=== PATIENT | male | born 1950 | race Caucasian/White ===

== ENCOUNTER 2024-06-11 11:01 | Emergency (ER) | payer OTHER, SELFPAY ==
[2024-06-11 11:13] VITALS: BP 123/70
--- NOTE | 2024-06-11 12:03 | ED.GENMED ---
History of Present Illness
General
Chief Complaint: Skin Problem
Time Seen by Provider: 06/11/24 11:54
History of Present Illness
History of Present Illness:
73-year-old male presents to the emergency department for evaluation of abscesses to the left axilla. He 'attacked them' yesterday and caused him to start draining. No fevers or chills. No history of MRSA
Past History
Past History
ED Past Medical History: Psychiatric
Social History
Personal:
Living: with family
Employment: Employed
Review of Systems
Review of Systems
Allergies reviewed?: Yes
All Other Systems: ROS reviewed and negative except as documented in HPI and ROS
Phy Exam
Physical Exam
Physical Exam:
GEN: Well appearing, NAD, WDWN
HEENT: Oral mucosa moist, no scleral icterus
Cardiac: Regular rate
Lung: No respiratory distress, no tachypnea
MSK: No gross deformity or injuries
Skin: Good color, no pallor or jaundice, no rashes. Abscesses with open wounds to the left axilla, actively draining
Neuro: AO x3, moves all extremities freely
Psych: Calm, cooperative
Course
Vital Signs
Initial and Last Documented VS:
Initial Vital Signs
Temp Pulse Resp BP Pulse Ox
98.5 F 65 18 123/70 97
06/11/24 11:13 06/11/24 11:13 06/11/24 11:13 06/11/24 11:13 06/11/24 11:13
Last Documented Vital Signs
Temp Pulse Resp BP Pulse Ox
98.5 F 65 18 123/70 97
06/11/24 11:13 06/11/24 11:13 06/11/24 11:13 06/11/24 11:13 06/11/24 11:13
MDM/Problems Addressed
MDM/Problems Addressed:
No need to perform incision and drainage as the patient perform this himself at home, will start Bactrim
*Critical Care Note
Total Time (30-74mins, 75-104mins- exclusive of procedures): Not Applicable
ED Attending Note
-
Portions of this chart may have been created with voice recognition software.� Occasional wrong word or��sound alike� substitutions may have occurred due to the inherent limitations of voice recognition software.
Discharge Plan
Departure
Patient Disposition: Home (Routine Discharge)
Date of Disposition: 06/11/24
Time of Disposition: 12:03
Patient with high blood pressure during this ER visit?: No
Discharge Problem:
Abscess of axilla, left
Instructions: Skin Abscess
Prescriptions:
New
sulfamethoxazole-trimethoprim [Bactrim DS] 800-160 mg tablet
1 tab PO BID Qty: 14 0RF
hydrocodone-acetaminophen 5-325 mg tablet
1 tab PO Q8H PRN (Reason: pain) Qty: 6 0RF
No Action
rabies vacc,human diploid (PF) [Imovax Rabies Vaccine (PF)] 1 ML recon soln
1 ml IM NOW Qty: 4 0RF
paroxetine HCl 10 MG tablet
10 mg PO DAILY
dextroamphetamine-amphetamine 10 MG tablet
10 mg PO PRN PRN (Reason: mental fatigue)
simvastatin 10 MG tablet
10 mg PO DAILY
Patient Comments:
pt unsure of all med doses, will bring in list next visit
lithium carbonate 300 MG capsule
300 mg PO DAILY
Interventions
Interventions:
*Risk Screen - Suicide Last Done: 06/11/24 11:15
*General Assessment Last Done: 06/11/24 11:15
*Neglect/Abuse Screening Last Done: 06/11/24 11:15
*ED COVID-19 Vaccine History Last Done: 06/11/24 11:15
*Nursing Disposition Last Done: 06/11/24 12:20
ED-Skin Assessment Last Done: 06/11/24 12:19
Discharge Date and Time
Discharge Date/Time: 06/11/24 12:21
Print Language: NEPALI
== END 2024-06-11 12:21 | disposition home or self-care (01) ==
LOC: EMR 11:01
PROVIDERS: EMERGENCY PHYSICIAN Emergency Medicine; FAMILY PHYSICIAN Family Medicine
DX: L02.412 Cutaneous abscess of left axilla (principal)
CPT/HCPCS: 99283

== ENCOUNTER 2024-09-25 23:15 | Observation (INO) | payer OTHER, SELFPAY ==
[2024-09-25] VITALS (13 sets, daily range): BP systolic 116–134; BP diastolic 58–84; BMI 27.0; BMI 27.1
--- NOTE | 2024-09-25 19:11 | ED.GENMED ---
ED Provider Triage
-
Patient seen by provider in Triage?: Seen in Triage
Attestation: A medical screening examination has been initiated by a qualified medical provider. Based on the assessment performed at this time, it has been determined that an emergent medical condition may exist and the patient has been informed
that further medical evaluation and possible additional diagnostic testing may be needed.
HPI: 73yoM here with insect bite to the back of L thigh. [place] a pain in the back of his thigh 3 days ago. Here with worsening redness and pain. No f/c.
GENERAL: Alert , in no apparent distress
EYE: No visual abnormalities.
NECK: Trachea midline
ENT: No visible abnormalities.
LUNGS: No acute respiratory distress
NEUROLOGICAL: Alert and oriented
SKIN: Erythema with wound noted to the posterior L thigh. +Induration. No crepitus, fluctuance, pain out of proportion.
MUSCULOSKELETAL: Moving extremities normally
PSYCH: Normal and appropriate interaction.
This is a medical evaluation conducted in person to initiate diagnostic evaluation and provide initial therapeutics. Please see further documentation by the treating clinician.
Basic labs ordered.
History of Present Illness
General
Chief Complaint: Skin Problem
Source: patient
Exam Limitations: none
Time Seen by Provider: 09/25/24 20:39
History of Present Illness
History of Present Illness:
73yoM with a history of hyperlipidemia, bipolar disorder, and prostate cancer presenting with his for evaluation of a possible insect bite to the left posterior thigh. He sat down 3 days ago and noticed a sharp pain in the back of his thigh.
He looked but did not see anything. He developed redness today which has been rapidly spreading. 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 He denies any fevers or chills. No known history of MRSA although has had
MRSA several times in the past.
Past History
Past History
ED Past Medical History: Psychiatric
Social History
Personal:
Living: with family
Employment: Employed
Phy Exam
General Physical Exam
General Presentation: well appearing and no apparent distress
General Skin: warm and dry
General Habitus: normal
General Mental: alert
ENT Exam
ENT Exam: normocephalic
Pulmonary Exam
Pulmonary Exam: no respiratory distress
Neurological Exam
Neurological Exam: alert
[place] Coma Scale
Eye Opening: Spontaneous
Verbal Response: Oriented
Motor Response: Obeys Commands
GCS Total Score: 15
Skin Exam
Skin Exam: warm/dry and other (L posterior thigh: Central area of induration with large area of surrounding erythema. Area is exquisitely tender to touch. No crepitus. )
Psychiatric Exam
Psychiatric Exam: normal mood/affect
Course
Orders/Labs/Results
Orders:
Orders
09/25/24 Dinner
Regular
09/25/24 19:17
Complete Blood Count/With Diff Urgent
Comprehensive Metabolic Panel Urgent
09/25/24 21:00
0.9% Sodium Chloride 1000 ml [Nss] 1,000 ml IV BOLUS
HYDROmorphone [Dilaudid] 0.5 mg IV NOW STA
09/25/24 21:03
Vancomycin [Vancocin] 2,000 mg 0.9% Sodium Chloride 500 ml [Nss] 500 ml IV NOW
09/25/24 21:35
Lactic Acid Urgent
Blood Culture Q30M
LINSEY Source: Blood/Venous
Specimen Description:
Blood Culture Q30M
LINSEY Source: Blood/Venous
Specimen Description:
Wound Culture [Wound/Abscess/Other Culture] Urgent
LINSEY Source: Abscess
Specimen Description:
Date Specimen was Collected: 09/25/24
Time Specimen was Collected: 21:25
Comment: L thigh
09/25/24 22:41
Admit/Transfer Patient As Directed
Co-Sign Provider:
Level of Care: Observation services
Assign to:: Medical/Surgical
Physician / Group: kimberli Lemons
Diagnosis: cellulitis
Code Status As Directed
Resuscitation Status: Full Code
PRN Pain Medication Management As Directed
May give lesser potent ordered pain med per pt: Yes
preference::
Protocol:: Medication orders for pain may be administered in a
manner that supports deferring to patient preference
when the pt is:
- Requesting an ordered lesser potent pain medication.
Least to most potent pain medications are defined
as: acetaminophen < NSAID < tramadol < opioids
(morphine, oxycodone, hydromorphone).
- Requesting a lesser dose of the same medication IF
ORDERED.
- Requesting a less intrusive route of administration
if both routes are prescribed by the provider (PO <
IV).
09/25/24 23:03
Buspirone [Buspar] 15 mg PO NOW STA
Prazosin HCl [Minipress] 1 mg PO NOW STA
09/25/24 23:47
Acetaminophen [Tylenol] 650 mg PO Q4HPRN PRN
CeFAZolin 1 GRAM [Ancef] 1 gram in 5 ml IV Q8H
diazePAM [Valium Injection] 2 mg IV Q6HPRN PRN
09/25/24 23:47
Activity As Directed
Activity Level: Ambulate
Vital Signs As Directed
Frequency: Per unit guidelines
Weight As Directed
Frequency: Once
Comment: on admission
DX Deep Vein Thrombosis Video Routine
09/26/24 06:00
Complete Blood Count/No Diff IN AM
09/26/24 18:00
Enoxaparin Sodium [Lovenox] 40 mg SC QPM
09/26/24 22:00
Atorvastatin [Lipitor] 10 mg PO HS
Buspirone [Buspar] 15 mg PO HS
Prazosin HCl [Minipress] 1 mg PO HS
Tamsulosin [Flomax] 0.4 mg PO HS
desvenlafaxine 50 mg PO HS
Abnormal Lab Results
09/25/24
19:17
WBC 11.7 H 10^3/uL
(4.8-10.8)
RBC 4.48 L 10^6/uL
(4.70-6.10)
Hgb 12.8 L g/dL
(13.0-18.0)
Hct 38.2 L %
(39.0-52.0)
Absolute Neuts (auto) 9.1 H 10^3/uL
(1.4-6.5)
Absolute Monos (auto) 0.8 H 10^3/uL
(0.1-0.6)
Neutrophils % 77.7 H %
(42.2-75.2)
Lymphocytes % 11.6 L %
(20.5-51.1)
Chloride 109 H mmol/L
(98-107)
Glucose 61 L mg/dl
(70-99)
09/25/24 19:17
09/25/24 19:17
Vital Signs
Initial and Last Documented VS:
Initial Vital Signs
Temp Pulse Resp BP Pulse Ox
98.9 F 71 18 116/82 98
09/25/24 19:09 09/25/24 19:09 09/25/24 19:09 09/25/24 19:09 09/25/24 19:09
Last Documented Vital Signs
Temp Pulse Resp BP Pulse Ox
99.1 F 88 18 121/58 97
09/25/24 23:56 09/25/24 23:56 09/25/24 23:56 09/25/24 23:56 09/25/24 23:56
Procedures
Incision/Drainage/Joint Aspiration
Left Posterior Thigh:
Anethesia: 1% Lidocaine with Epi
Preparation: cleaned with Betadine
Type of procedure: incise and drain
Nature of site: abscess
Description of abscess: greater than 3cm
Loculations broken up: Yes
How much fluid was obtained?: small amount
Fluid description: purulent
Treatment: left open for drainage
MDM/Problems Addressed
Differential Diagnosis Includes:
73yoM here with a possible insect bite to the L posterior thigh x 3 days. Now with redness today that is rapidly worsening. VSS. He is non-toxic appearing. There is induration with a large area of cellulitis on exam. Differential diagnosis includes:
insect/spider bite, abscess, cellulitis, doubt NSTI
Labs sent in triage and white count is 11.7. I&D performed at bedside with small amount of purulence which was sent for wound culture. reports that erythema has spread even since he arrived to the ED about 2 hours ago. Blood cultures and IV
vancomycin ordered. Patient admitted for further management.
*Pulse Oximetry
SaO2: 98
Oxygen Mode of Delivery: Room air
Patient hypoxic: no (98%)
*Critical Care Note
Total Time (30-74mins, 75-104mins- exclusive of procedures): Not Applicable
ED Attending Note
-
Portions of this chart may have been created with voice recognition software.� Occasional wrong word or��sound alike� substitutions may have occurred due to the inherent limitations of voice recognition software.
Discharge Plan
Departure
Patient Disposition: Admit
Date of Disposition: 09/25/24
Time of Disposition: 21:05
Presentation/result/management discussed w/ accepting MD/DO: Hospitalist
Discharge Problem:
Infected insect bite of left thigh
Interventions
Interventions:
*Risk Screen - Suicide Last Done: 09/25/24 19:09
*General Assessment Last Done: 09/25/24 19:09
*Neglect/Abuse Screening Last Done: 09/25/24 21:29
*ED- Fall Risk Assessment Last Done: 09/25/24 21:29
*ED COVID-19 Vaccine History Last Done: 09/25/24 21:29
*Nursing Disposition Last Done: 09/25/24 23:40
ED-Skin Assessment Last Done: 09/25/24 21:32
Discharge Date and Time
Discharge Date/Time: 09/25/24 23:55
[2024-09-25 19:27] LABS: Hematocrit 38.2 % (39.0-52.0); Hemoglobin 12.8 g/dL (13.0-18.0); Mean Corp Hgb Conc. 33.5 g/dL (33.0-37.0); Mean Corpuscular Volume 85.3 fL (80.0-94.0); Nucleated Red Blood Cells % 0 % (-); Platelet Count 231 10^3/uL (130-400); Red Cell Dist. Width 13.0 % (11.5-14.5)
[2024-09-25 19:53] LABS: ALT (SGPT) 24 U/L (0-50); AST (SGOT) 23 U/L (17-59); Albumin 4.0 g/dl (3.5-5.0); Alkaline Phosphatase 85 U/L (38-126); Blood Urea Nitrogen 18 mg/dl (9-20); Calcium 8.7 mg/dl (8.4-10.2); Carbon Dioxide 24 mmol/L (22-30); Chloride 109 mmol/L (98-107); Glucose 61 mg/dl (70-99); Potassium 3.9 mmol/L (3.5-5.1); Sodium 139 mmol/L (135-145); Total Protein 6.6 g/dl (6.3-8.2); eGFR > 60.00
--- NOTE | 2024-09-25 21:31 | HPS.HSE ---
Addendum entered and electronically signed by Andrey Lemons DO 09/25/24 23:09:
Patient seen and examined independently. Agree with findings and plan as set forth by ANNA Mahmood.
Patient is a 73y M with PMH significant for bipolar depression including vivid nightmares who presents to ED for evaluation of L posterior thigh pain, swelling and redness. Patient felt a sharp sting Wednesday afternoon and thought he must have sat
on something sharp. He saw nothing however. Later his noted a small area of redness over the posterior thigh. This has since increased in size and become more painful. No fevers / chills.
Ass:
Left Thigh Cellulitis / Abscess
Bipolar Depression with Vivid Nightmares
ADD
BPH
Plan:
Observe overnight for further evaluation and treatment.
Continue IV abx for now.
Aspiration performed for small amount of purulent material in the ED.
Follow-up culture data and adjust abx as needed.
Consider Surgical eval if no improvement or evidence of developing fluctuance, etc.
Continue usual psychotropic med regimen.
Patient / notes that he has frequency, vivid nightmares including 'participation' in the form of punching, acting out, etc.
Continue anxiolytic medications. Ativan PRN.
Original Note:
Family Physician
-
Family Physician: Renetta Goodson
Chief Complaint
-
left posterior thigh erythema and edema
History of Present Illness
Patient is a 73-year-old male with past medical history significant for hyperlipidemia, bipolar disorder, depression, ADHD, BPH, overactive bladder and Hx prostate cancer who presented to [facility] ED for evaluation of left posterior thigh erythema and
edema. Patient reports that he works at [employer] in [place] and when he was leaving work on Wednesday afternoon and got into his truck he stated he felt like he sat on something sharp. He immediately got up and did not see anything on the seat.
Since then he has had discomfort to the posterior left thing with touch, trying to sit or in some cases use (i.e. when pressing down clutch in truck). 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 He denies any fever, chills, cough, shortness of breath, chest pain, nausea, vomiting, constipation, diarrhea or urinary symptoms.
Medical History
Past Medical History
Past Medical History: Reports Other
Additional Past Medical History:
hyperlipidemia
bipolar disorder
depression
ADHD
BPH
overactive bladder
TANNA
Hx prostate cancer
Past Surgical History: Reports Other
Additional Past Surgical History:
right shoulder surgery rotator cuff and SLAP tear, acromioplasty Dr Hannah 10/2017
surgery right knee, ruptured 's cyst 2018
Mohs surgery for basal cell skin cancer, Dr Sands, Dr Kang 2018 for back lesion, Feb 2022 for lesion on the nose Feb 2018
prostate biopsies, prostate cancer 2021, June 2022
Social History
Tobacco: Non-smoker
Alcohol: Occasional
Drug: None
Personal:
Living: With Family
Employment: Employed
Family History
Family History: Not pertinent
Allergies / Home Medications
Allergies reflects when Allergies were last updated in [facility].
Home Medications with original date entered in [facility]
Allergy/Medication List:
Allergies
Allergy/AdvReac Type Severity Reaction Status Date / Time
No Known Allergies Allergy Verified 09/25/24 19:08
Home Medications
dextroamphetamine-amphetamine 10 mg tablet 10 mg PO PRN PRN mental fatigue 09/30/09
simvastatin 10 mg tablet 20 mg PO HS 09/30/09
alfuzosin 10 mg tablet,extended release 24 hr 10 mg PO HS 09/25/24
buspirone 15 mg tablet 15 mg HS 09/25/24
desvenlafaxine 50 mg tablet,extended release 24 hour 50 mg PO HS 09/25/24
prazosin 1 mg capsule 1 mg PO HS 09/25/24
Review of Systems
-
History Source: Patient
Constitutional: Denies Fever or Chills
EENT: Denies Sore Throat
Respiratory: Denies Cough or Trouble Breathing
Cardiac: Denies Chest Pain, Diaphoresis or Palpitations
Abdomen/GI: Denies Abdominal Pain, Nausea, Vomiting, Diarrhea or Constipated
: Denies Dysuria, Frequency, Flank Pain, Difficulty Voiding or Urgency
Musculoskeletal: Reports Other (left posterior thigh erythema, edema and pain )
Skin: Reports Other (left posterior thigh erythema, edema and pain )
Neurological: Denies Dizzy, Weakness or Numbness
Psych: Reports Calm
Physical Exam
Vital Signs
Vital Signs
Temp Pulse Resp BP Pulse Ox
98.9 F 71 18 116/82 98
09/25/24 19:09 09/25/24 19:09 09/25/24 19:09 09/25/24 19:09 09/25/24 19:12
Physical Exam
General: Well Developed, Well Nourished, No Apparent Distress, Comfortable, Conversant and Obese
HEENT: NormoCephalic, Moist mucous membranes and Atraumatic
Respiratory: Clear and Non Labored Respirations
Cardiac: S1/S2 and Regular Rhythm; No Murmur, Rub or Gallop
Breast: Deferred by me
GI: Soft, Non Tender, Non Distended and Normal Bowel Sounds; No Organomegaly
Rectal: Deferred by Provider
Genito-urinary: Deferred by me
Musculoskeletal: No Clubbing, No Cyanosis and No Edema
Skin: Warm, IV/Catheter Site and Other (left posterior thigh erythema and edema (tender to touch) )
Neuro: Awake, AO x 3 and Nonfocal/grossly intact
Psych: Calm and Intact Judgment/Insight
Laboratory Results
-
09/25/24 19:17
08/11/25 19:17
Laboratory Results
Total Bilirubin 0.6 mg/dl (0.2-1.3) 09/25/24 19:17
AST 23 U/L (17-59) 09/25/24 19:17
ALT 24 U/L (0-50) 09/25/24 19:17
Alkaline Phosphatase 85 U/L (38-126) 09/25/24 19:17
Data Reviewed
-
Lab Data: Labs Reviewed by me (WBC 11.7, Neut 77.7, )
Impression/Plan
-
IMPRESSION/PLAN:
#cellulitis likely 2/2 insect bite
WBC 11.7, Neut 77.7
- Admit to med-surg
- IV Ancef
- supportive care
#hypertension
- continue prazosin
#hyperlipidemia
- continue simvastatin
#bipolar disorder
#depression
- continue buspirone and desvenlafaxine
#ADHD
- continue Adderall PRN out patient
#BPH
- continue alfuzosin
#overactive bladder
#Hx prostate cancer
Code status: full code
DVT prophylaxis: Lovenox sq
[2024-09-25] MEDS: DILAUDID 0.5 MG IV (21:48)
[2024-09-25] MEDS: NSS 1000 IV (21:49)
[2024-09-25] MEDS: VANCOCIN 540 MG IV (22:17)
[2024-09-25] MEDS: BUSPAR 15 MG PO (23:14)
[2024-09-25] MEDS: MINIPRESS 1 MG PO (23:14)
[2024-09-26] MEDS: ANCEF 5 IV ×3 (01:01→16:34)
--- NOTE | 2024-09-26 06:59 | W.PN.HOSP.TC ---
Today's Communication/Plan
-
IV ancef to transition to Augmentin tonight
possible discharge tomorrow if cellulitis cont to improve
Assessment / Plan
Assessment / Plan
Physical Exam
General: No acute distress, appears comfortable a this time
HEENT: NormoCephalic, Moist mucous membranes and Atraumatic
Respiratory: Clear and Non Labored Respirations
Cardiac: S1/S2 and Regular Rhythm; No Murmur, Rub or Gallop
GI: Soft, Non Tender, Non Distended and Normal Bowel Sounds; No Organomegaly
Musculoskeletal: No Clubbing, No Cyanosis and No Edema
Skin: Warm, left posterior thigh erythema and edema tender to touch
Neuro: Awake, AO x 3 and Nonfocal/grossly intact
Psych: Calm and Intact Judgment/Insight
73M HLD Bipolar Depression ADHD BPH Hx Prostate Ca overactive bladder here with LLE cellulitis
#cellulitis likely 2/2 insect bite
- med-surg admit
- IV Ancef transition to Augmentin tonght 09/26
- X-ray appreciated no foreign body
- supportive care
#hypertension
- continue prazosin
#hyperlipidemia
- continue simvastatin
#bipolar disorder
#depression
- continue buspirone and desvenlafaxine
#ADHD
- continue Adderall PRN out patient
#BPH
- continue alfuzosin
#overactive bladder
#Hx prostate cancer
Code status: full code
DVT prophylaxis: Lovenox sq
I spent a total of 38 minutes with the patient or on the floor. More than 50% of this time involved counseling and coordination of care.
Anticipated Discharge: Within 24 hours
Subjective/Interval History
-
Date of Service: September 26, 2024
no acute distress, sitting up comfortably in bed, reports significant improvement in pain since start of IV abx. Denies new acute issues.
Objective Data
-
Labs:
Laboratory Results
09/25/24 09/26/24
19:17 06:42
WBC 11.7 H Pending
Hgb 12.8 L Pending
Hct 38.2 L Pending
Plt Count 231 Pending
Sodium 139
Potassium 3.9
Chloride 109 H
Carbon Dioxide 24
BUN 18
Creatinine 0.8
Glucose 61 L
Calcium 8.7
Total Bilirubin 0.6
AST 23
ALT 24
Alkaline Phosphatase 85
Vital Signs:
Vital Signs
Temp Pulse Resp BP Pulse Ox
99.1 F 88 18 121/58 97
09/25/24 23:56 09/25/24 23:56 09/25/24 23:56 09/25/24 23:56 09/26/24 02:05
[2024-09-26 07:13] VITALS: BP 106/59
[2024-09-26 07:59] LABS: Hematocrit 35.4 % (39.0-52.0); Hemoglobin 11.9 g/dL (13.0-18.0); Mean Corp Hgb Conc. 33.6 g/dL (33.0-37.0); Mean Corpuscular Volume 85.9 fL (80.0-94.0); Platelet Count 229 10^3/uL (130-400); Red Cell Dist. Width 13.1 % (11.5-14.5)
[2024-09-26 09:36] LABS: Hepatitis C Antibody Negative (Negative)
[2024-09-26 15:29] VITALS: BP 117/69
--- NOTE | 2024-09-26 16:20 | CM ---
Met with patient to obtain information for assessment. Patient's was at bedside. Patient stated that he lives in a two story home with two steps to enter with his . He described himself as independent with all of his ADLs, personal care,
dressing and bathing. 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 He can drive and can get himself to all of his own appointments. Patient has a CPAP. He has never been to a SNF or had VN in the past.
Patient has a prescription plan and uses, [facility] in [place] for all of his medications.
Patient's PCP is, Renetta Goodson.
OBS letter signed and in chart.
Plan: Case management will continue to follow and assist with discharge planning. Home when cleared.
[2024-09-26] MEDS: LOVENOX 40 MG SC (16:35)
[2024-09-26] MEDS: AUGMENTIN 875 MG/125 MG 1 TABLET PO (19:24)
[2024-09-26] MEDS: FLOMAX 0.4 MG PO (20:56)
[2024-09-26] MEDS: BUSPAR 15 MG PO (20:56)
[2024-09-26] MEDS: NON-FORMULARY ITEM 1 MG PO (20:56)
[2024-09-26] MEDS: LIPITOR 10 MG PO (20:56)
[2024-09-26] MEDS: MINIPRESS 1 MG PO (20:56)
[2024-09-26 23:22] VITALS: BP 143/65
--- NOTE | 2024-09-27 07:15 | W.PN.HOSP.TC ---
Today's Communication/Plan
-
discharge
Assessment / Plan
Assessment / Plan
Physical Exam
General: No acute distress, appears comfortable a this time
HEENT: NormoCephalic, Moist mucous membranes and Atraumatic
Respiratory: Clear and Non Labored Respirations
Cardiac: S1/S2 and Regular Rhythm; No Murmur, Rub or Gallop
GI: Soft, Non Tender, Non Distended and Normal Bowel Sounds; No Organomegaly
Musculoskeletal: No Clubbing, No Cyanosis and No Edema
Skin: Warm, left posterior thigh erythema, swelling, tenderness significantly improved
Neuro: Awake, AO x 3 and Nonfocal/grossly intact
Psych: Calm and Intact Judgment/Insight
73M HLD Bipolar Depression ADHD BPH Hx Prostate Ca overactive bladder here with LLE cellulitis
#cellulitis likely 2/2 insect bite
- med-surg admit
- IV Ancef transitioned to Augmentin Evening 09/26
- X-ray appreciated no foreign body
- cellulitis improving however wound culture returned positive for MRSA despite neg MRSA screen
-09/27 Augmentin switched to Doxycycline 100 mg bid planned for 5 more days of antibiotic treatment.
#hypertension
- continue prazosin
- well controlled at this time
#hyperlipidemia
- continue simvastatin
#bipolar disorder
#depression
- continue buspirone and desvenlafaxine
#ADHD
- continue Adderall PRN out patient
#BPH
- continue alfuzosin
#overactive bladder
#Hx prostate cancer
Code status: full code
DVT prophylaxis: Lovenox sq
Total Time Preparing Discharge __40__ minutes including examination of the patient, summary of the hospital stay, instructions for continuing care to all relevant caregivers; and preparation of discharge records, prescriptions, and referral forms
if necessary.
Anticipated Discharge: Today
Subjective/Interval History
-
Date of Service: September 27, 2024
Overall reports feeling well, LLE thigh swelling erythema significantly improved. Denies new acute issues. Eager to go home
Objective Data
-
Vital Signs:
Vital Signs
Temp Pulse Resp BP Pulse Ox
98.3 F 61 17 143/65 96
09/26/24 23:22 09/26/24 23:22 09/26/24 23:22 09/26/24 23:22 09/26/24 23:22
I&O
09/26/24 09/27/24 09/28/24
06:59 06:59 06:59
Intake Total 0 / 0 1200 / 1200
Balance 0 / 0 1200 / 1200
[2024-09-27 07:26] VITALS: BP 110/70
[2024-09-27] MEDS: AUGMENTIN 875 MG/125 MG 1 TABLET PO (08:20)
[2024-09-27] MEDS: VIBRAMYCIN 100 MG PO (13:38)
--- NOTE | 2024-09-27 13:41 | W.DCSUMMARY ---
Discharge Summary
Discharge Data
Date of Admission: 09/25/24
Date of Discharge: 09/27/24
-
Pending Results: Yes (official culture results)
Discharge Plan
-
Patient Disposition: Home (Routine Discharge)
Discharge Diagnosis/Procedures: Left Lower Extremity, posterior thigh, cellulitis
MRSA wound infection
Condition: Good
Diet: Regular
Activity: As tolerated
Driving Restrictions: As prior to admission
Bathing Restrictions: None
Activity Restrictions/Additional Instructions:
Follow up with primary care provider in 1 week of discharge.
Doxycycline 100 mg twice a day for 5 days prescribed for Left lower extremity posterior thigh cellulitis MRSA wound infection.
Doxycycline Precautions
Take with at least 6 oz H2O
Take with food but no calcium containing products like milk or cheese
Ideally you would not take any multivitamins, calcium, magnesium or zinc containing products.
If you must take one of these products make sure that the pills are by at least 3 hours.
Sit up for at least 30 minutes after each dose to prevent heartburn.
Your skin will be more sensitive to the sun while you are on doxycycline - it will be very easy for you to get a sunburn.
Please take medications as prescribed/recommended and follow up with primary care provider and/or other healthcare provider involved in your care for refills and/or further adjustment to your medication regimen as necessary.
Referrals:
Renetta Goodson MD [Family Provider, [facility]] - in one week
Prescriptions:
New
doxycycline hyclate 100 mg Capsule
100 mg PO Q12 5 Days Qty: 10 0RF
Continued
dextroamphetamine-amphetamine 10 MG tablet
10 mg PO PRN PRN (Reason: mental fatigue)
simvastatin 10 MG tablet
20 mg PO HS
Patient Comments:
pt unsure of all med doses, will bring in list next visit
prazosin 1 mg Capsule
1 mg PO HS
buspirone 15 mg Tablet
15 mg HS
alfuzosin 10 mg Tablet Extended Release 24 Hr
10 mg PO HS
desvenlafaxine 50 mg Tablet Extended Release 24hr
50 mg PO HS
Discharge Orders:
Discharge Patient (As Directed); Ordered 09/27/24
Ordered By: Andrew Baltazar
Discharge Date and Time
Print Language: SWEDISH
[2024-09-27 15:20] VITALS: BP 122/66
== END 2024-09-27 17:46 | disposition home or self-care (01) ==
LOC: 4 EAST ACU 23:15
PROVIDERS: Nurse Practitioner Family; Physician Assistant; ADMITTING PHYSICIAN Hospitalist; ATTENDING PHYSICIAN Internal Medicine; EMERGENCY PHYSICIAN Emergency Medicine; FAMILY PHYSICIAN Family Medicine
DX: L03.116 Cellulitis of left lower limb (principal); B95.62 Methicillin resistant Staphylococcus aureus infection as the cause of diseases classified elsewhere; S70.362A Insect bite (nonvenomous), left thigh, initial encounter; W57.XXXA Bitten or stung by nonvenomous insect and other nonvenomous arthropods, initial encounter; F31.9 Bipolar disorder, unspecified; E78.5 Hyperlipidemia, unspecified; F90.9 Attention-deficit hyperactivity disorder, unspecified type; N32.81 Overactive bladder; N40.1 Benign prostatic hyperplasia with lower urinary tract symptoms; I10 Essential (primary) hypertension; G47.33 Obstructive sleep apnea (adult) (pediatric)
CPT/HCPCS: 10060; 73552; 80053; 83605; 85025; 85027; 86803; 87040; 87070; 87147; 87186; 87205; 96365; 96366; 96375; 99285; G0378

== ENCOUNTER → 2024-10-25 09:41 | Outpatient (REF) | payer OTHER, SELFPAY | LOC: HWRAD 09:41 | PROVIDERS: ATTENDING PHYSICIAN Urology; FAMILY PHYSICIAN Family Medicine | DX: N20.0 Calculus of kidney (principal) | CPT/HCPCS: 74018 ==

== ENCOUNTER 2024-11-22 22:53 | Inpatient (IN) | payer OTHER, SELFPAY ==
[2024-11-22 14:09] VITALS: BP 171/84
[2024-11-22 14:30] LABS: Hematocrit 43.2 % (39.0-52.0); Hemoglobin 14.4 g/dL (13.0-18.0); Mean Corp Hgb Conc. 33.3 g/dL (33.0-37.0); Mean Corpuscular Volume 83.6 fL (80.0-94.0); Nucleated Red Blood Cells % 0 % (-); Platelet Count 258 10^3/uL (130-400); Red Cell Dist. Width 12.7 % (11.5-14.5)
[2024-11-22 14:42] LABS: ALT (SGPT) 21 U/L (0-50); AST (SGOT) 21 U/L (17-59); Albumin 4.5 g/dl (3.5-5.0); Alkaline Phosphatase 105 U/L (38-126); Blood Urea Nitrogen 18 mg/dl (9-20); Calcium 9.4 mg/dl (8.4-10.2); Carbon Dioxide 24 mmol/L (22-30); Chloride 109 mmol/L (98-107); Glucose 118 mg/dl (70-99); Lipase 62 U/L (23-300); Potassium 5.1 mmol/L (3.5-5.1); Sodium 139 mmol/L (135-145); Total Protein 7.2 g/dl (6.3-8.2); eGFR > 60.00
--- NOTE | 2024-11-22 18:00 | ED.GENMED ---
History of Present Illness
<Tata Barton PA-C - Last Filed: 11/23/24 02:23>
General
Chief Complaint: Abdominal Symptoms
Source: patient
Exam Limitations: none
Time Seen by Provider: 11/22/24 17:37
Nursing documentation reviewed up to this point in time: agreed with
History of Present Illness
History of Present Illness:
Patient is a 73-year-old male with history prostate CA who presents to the emergency department today with 1 day of lower abdominal pain and vomiting. Patient states that today on his drive to work he had somewhat acute onset nausea and vomiting as
well as pain across his entire lower abdomen. Since then, he has had intractable vomiting. Pain has dissipated somewhat since earlier this morning. He denies any fever or chills. No diarrhea however he does state that he is having less frequent
bowel movements over the past few days. Last night he felt slightly 'off' with low appetite and did not eat dinner. No dysuria or hematuria.
Patient states he has never experienced similar symptoms.
He does have a past history of prostate cancer and follows with a urologist at [facility].
Past History
<Tata Barton PA-C - Last Filed: 11/23/24 02:23>
Past History
ED Past Medical History: Psychiatric
Social History
Personal:
Living: with family
Employment: Employed
Review of Systems
<Tata Barton PA-C - Last Filed: 11/23/24 02:23>
Review of Systems
Allergies reviewed?: Yes
All Other Systems: ROS reviewed and negative except as documented in HPI and ROS
Phy Exam
<Tata Barton PA-C - Last Filed: 11/23/24 02:23>
Physical Exam
Physical Exam:
Vitals: Hypertensive, otherwise vital signs stable. Afebrile
General: Patient is retching on initial evaluation. Nontoxic
Skin: Warm and dry, no rashes or lesions
Head: Normocephalic, atraumatic
Eyes: Sclera nonicteric. EOMs intact.
Throat: Protecting airway
Neck: Normal ROM, no cervical spine tenderness, no meningismus
Cardiac: Regular rate and rhythm, no murmurs.
Pulm: Normal respiratory effort, no wheezes, rales, rhonchi heard on exam
Abdomen: Abdomen soft. Mild tenderness across entire lower abdomen. No rebound tenderness or guarding. No CVA tenderness.
Extremities: No evidence of cyanosis or edema. 2+ palpable DP pulses bilaterally
Neuro: AAOx3. Grossly intact.
Psychiatric: Normal affect.
Course
<Tata Barton PA-C - Last Filed: 11/23/24 02:23>
Orders/Labs/Results
Orders:
Orders
11/22/24 14:17
Complete Blood Count/With Diff Urgent
Comprehensive Metabolic Panel Urgent
Lipase Urgent
11/22/24 17:58
CT Abd/pelvis W Iv Cont Urgent
Comment:
Reason For Exam: Lower abdominal pain, vomiting
0.9% Sodium Chloride 1000 ml [Nss] 1,000 ml IV BOLUS
Ketorolac [Toradol] 15 mg IV NOW STA
Ondansetron Injectable [Zofran] 4 mg IV NOW STA
11/22/24 18:25
COVID-19 Antigen Urgent
Source: Nasal Swab
Lactic Acid Q4H
Comment: CANCEL 2nd LACTIC ACID IF 1st LACTIC ACID IS LESS THAN 2
Influenza A+B Rapid Molecular Urgent
LINSEY Source: Nasal Swab
Specimen Description:
11/22/24 21:18
Urinalysis Reflex To Culture Urgent
Date Specimen was Collected: 11/22/24
Time Specimen was Collected: 21:17
Urine Microscopic Reflex Cult Urgent
Urine Culture Urgent
LINSEY Source: U
Specimen Description:
Date Specimen was Collected: 11/22/24
Time Specimen was Collected: 21:17
11/22/24 21:43
HYDROmorphone [Dilaudid] 0.5 mg IV NOW STA
Tamsulosin [Flomax] 0.4 mg PO NOW STA
11/22/24 21:56
Ondansetron Injectable [Zofran] 4 mg IV NOW STA
11/22/24 22:09
Admit/Transfer Patient As Directed
Co-Sign Provider:
Level of Care: Inpatient admission
Assign to:: Medical/Surgical
Physician / Group: Radha
Diagnosis: ureterolithiasis
Reason for Hospitalization: Obstructing ureterolithiasis w/ hydronephrosis
Expected length of stay greater than two midnights?: Yes
ELOS- Estimated Length of Stay in days: 2
I certify the patient meets the requirements for IP care: Yes
11/22/24 22:10
PRN Pain Medication Management As Directed
May give lesser potent ordered pain med per pt: Yes
preference::
Protocol:: Medication orders for pain may be administered in a
manner that supports deferring to patient preference
when the pt is:
- Requesting an ordered lesser potent pain medication.
Least to most potent pain medications are defined
as: acetaminophen < NSAID < tramadol < opioids
(morphine, oxycodone, hydromorphone).
- Requesting a lesser dose of the same medication IF
ORDERED.
- Requesting a less intrusive route of administration
if both routes are prescribed by the provider (PO <
IV).
11/22/24 22:11
Code Status As Directed
Resuscitation Status: Full Code
11/22/24 23:24
Acetaminophen [Tylenol] 650 mg PO Q4HPRN PRN
Amphet Asp/Amphet/D-Amphet [Adderall] 10 mg PO DAILYPRN PRN mental fatigue
Bisacodyl [Dulcolax] 10 mg RECTAL [id number] PRN
Docusate W/Senna [Senokot-S] 1 tablet PO BIDPRN PRN
HYDROmorphone [Dilaudid] 0.5 mg IV Q4HPRN PRN
Ketorolac [Toradol] 10 mg IV Q6HPRN PRN
Lactated Ringers [Lr] 1,000 ml IV 75 mls/hr
Polyethylene Glycol Powder [Miralax] 17 grams PO DAILYPRN PRN
11/22/24 23:24
Activity As Directed
Activity Level: With Assistance
Intake/ Output As Directed
Frequency: Per unit guidelines
Pneumatic Compression Sleeves As Directed
Type: Knee high
Vital Signs As Directed
Frequency: Per unit guidelines
DX Deep Vein Thrombosis Video Routine
11/23/24 Breakfast
NPO
Allow oral meds: Yes
Allow clear liquids: Sips of Clears
Basic Metabolic Panel IN AM
Complete Blood Count/No Diff IN AM
Magnesium IN AM
11/23/24 22:00
Buspirone [Buspar] 15 mg PO HS
Prazosin HCl [Minipress] 1 mg PO HS
Tamsulosin [Flomax] 10 mg PO HS
desvenlafaxine See Dose Instructions PO HS
Abnormal Lab Results
11/22/24 11/22/24
14:17 21:18
Absolute Neuts (auto) 9.2 H 10^3/uL
(1.4-6.5)
Absolute Lymphs (auto) 0.8 L 10^3/uL
(1.2-3.4)
Neutrophils % 87.9 H %
(42.2-75.2)
Lymphocytes % 7.7 L %
(20.5-51.1)
Chloride 109 H mmol/L
(98-107)
Glucose 118 H mg/dl
(70-99)
Urine Ketones 3+ A
(Negative)
Ur Occult Blood Reflex 4+ A
(Negative)
Leukocyte Esterase Rfl 1+ A
(Negative)
Urine RBC 11-15 A /HPF
(0-2)
Urine Bacteria (Reflex) Few A
(Negative)
Urine Albumin (Reflex) 2+ A
(Neg - Trace)
11/22/24 14:17
11/22/24 14:17
Vital Signs
Initial and Last Documented VS:
Initial Vital Signs
Temp Pulse Resp BP Pulse Ox
98.8 F 57 18 171/84 98
11/22/24 14:09 11/22/24 14:09 11/22/24 14:09 11/22/24 14:09 11/22/24 14:09
Last Documented Vital Signs
Temp Pulse Resp BP Pulse Ox
98.8 F 53 13 122/66 97
11/22/24 14:09 11/23/24 01:45 11/23/24 01:45 11/23/24 00:00 11/23/24 01:45
<Arcenio Fair, DO - Last Filed: 11/22/24 22:13>
Orders/Labs/Results
Orders:
Orders
11/22/24 14:17
Complete Blood Count/With Diff Urgent
Comprehensive Metabolic Panel Urgent
Lipase Urgent
11/22/24 17:58
CT Abd/pelvis W Iv Cont Urgent
Comment:
Reason For Exam: Lower abdominal pain, vomiting
0.9% Sodium Chloride 1000 ml [Nss] 1,000 ml IV BOLUS
Ketorolac [Toradol] 15 mg IV NOW STA
Ondansetron Injectable [Zofran] 4 mg IV NOW STA
11/22/24 18:25
COVID-19 Antigen Urgent
Source: Nasal Swab
Lactic Acid Q4H
Comment: CANCEL 2nd LACTIC ACID IF 1st LACTIC ACID IS LESS THAN 2
Influenza A+B Rapid Molecular Urgent
LINSEY Source: Nasal Swab
Specimen Description:
11/22/24 21:18
Urinalysis Reflex To Culture Urgent
Date Specimen was Collected: 11/22/24
Time Specimen was Collected: 21:17
Urine Microscopic Reflex Cult Urgent
Urine Culture Urgent
LINSEY Source: U
Specimen Description:
Date Specimen was Collected: 11/22/24
Time Specimen was Collected: 21:17
11/22/24 21:43
HYDROmorphone [Dilaudid] 0.5 mg IV NOW STA
Tamsulosin [Flomax] 0.4 mg PO NOW STA
11/22/24 21:56
Ondansetron Injectable [Zofran] 4 mg IV NOW STA
11/22/24 22:09
Admit/Transfer Patient As Directed
Co-Sign Provider:
Level of Care: Inpatient admission
Assign to:: Medical/Surgical
Physician / Group: Radha
Diagnosis: ureterolithiasis
Reason for Hospitalization: Obstructing ureterolithiasis w/ hydronephrosis
Expected length of stay greater than two midnights?: Yes
ELOS- Estimated Length of Stay in days: 2
I certify the patient meets the requirements for IP care: Yes
11/22/24 22:10
PRN Pain Medication Management As Directed
May give lesser potent ordered pain med per pt: Yes
preference::
Protocol:: Medication orders for pain may be administered in a
manner that supports deferring to patient preference
when the pt is:
- Requesting an ordered lesser potent pain medication.
Least to most potent pain medications are defined
as: acetaminophen < NSAID < tramadol < opioids
(morphine, oxycodone, hydromorphone).
- Requesting a lesser dose of the same medication IF
ORDERED.
- Requesting a less intrusive route of administration
if both routes are prescribed by the provider (PO <
IV).
11/22/24 22:11
Code Status As Directed
Resuscitation Status: Full Code
11/22/24 23:24
Acetaminophen [Tylenol] 650 mg PO Q4HPRN PRN
Amphet Asp/Amphet/D-Amphet [Adderall] 10 mg PO DAILYPRN PRN mental fatigue
Bisacodyl [Dulcolax] 10 mg RECTAL [id number] PRN
Docusate W/Senna [Senokot-S] 1 tablet PO BIDPRN PRN
HYDROmorphone [Dilaudid] 0.5 mg IV Q4HPRN PRN
Ketorolac [Toradol] 10 mg IV Q6HPRN PRN
Lactated Ringers [Lr] 1,000 ml IV 75 mls/hr
Polyethylene Glycol Powder [Miralax] 17 grams PO DAILYPRN PRN
11/22/24 23:24
Activity As Directed
Activity Level: With Assistance
Intake/ Output As Directed
Frequency: Per unit guidelines
Pneumatic Compression Sleeves As Directed
Type: Knee high
Vital Signs As Directed
Frequency: Per unit guidelines
DX Deep Vein Thrombosis Video Routine
11/23/24 Breakfast
NPO
Allow oral meds: Yes
Allow clear liquids: Sips of Clears
Basic Metabolic Panel IN AM
Complete Blood Count/No Diff IN AM
Magnesium IN AM
11/23/24 22:00
Buspirone [Buspar] 15 mg PO HS
Prazosin HCl [Minipress] 1 mg PO HS
Tamsulosin [Flomax] 10 mg PO HS
desvenlafaxine See Dose Instructions PO HS
Abnormal Lab Results
11/22/24 11/22/24
14:17 21:18
Absolute Neuts (auto) 9.2 H 10^3/uL
(1.4-6.5)
Absolute Lymphs (auto) 0.8 L 10^3/uL
(1.2-3.4)
Neutrophils % 87.9 H %
(42.2-75.2)
Lymphocytes % 7.7 L %
(20.5-51.1)
Chloride 109 H mmol/L
(98-107)
Glucose 118 H mg/dl
(70-99)
Urine Ketones 3+ A
(Negative)
Ur Occult Blood Reflex 4+ A
(Negative)
Leukocyte Esterase Rfl 1+ A
(Negative)
Urine RBC 11-15 A /HPF
(0-2)
Urine Bacteria (Reflex) Few A
(Negative)
Urine Albumin (Reflex) 2+ A
(Neg - Trace)
11/22/24 14:17
11/22/24 14:17
Vital Signs
Initial and Last Documented VS:
Initial Vital Signs
Temp Pulse Resp BP Pulse Ox
98.8 F 57 18 171/84 98
11/22/24 14:09 11/22/24 14:09 11/22/24 14:09 11/22/24 14:09 11/22/24 14:09
Last Documented Vital Signs
Temp Pulse Resp BP Pulse Ox
98.8 F 53 13 122/66 97
11/22/24 14:09 11/23/24 01:45 11/23/24 01:45 11/23/24 00:00 11/23/24 01:45
<Tata Barton PA-C - Last Filed: 11/23/24 02:23>
MDM/Problems Addressed
Differential Diagnosis Includes:
Not limited to: Viral gastroenteritis, colitis, diverticulitis, appendicitis, cystitis/pyelonephritis, renal colic, bowel obstruction, etc.
MDM/Problems Addressed:
73-year-old male presents with acute onset nausea, vomiting, and lower abdominal pain that began this morning. Patient vomiting on initial evaluation however pain has subsided some. He denies fever, dysuria, or other urinary symptoms. Vitals are
stable throughout ED course.
Initial labs are unremarkable. Urinalysis notable for microscopic hematuria without evidence of infection. CT abdomen/pelvis reveals two obstructing calculi in the left proximal ureter (10 mm and 6 mm) with associated moderate to severe
hydronephrosis. No radiographic or clinical signs of urinary tract infection or sepsis.
Given stone size, spontaneous passage is highly unlikely. Urology consulted�agrees with findings and plans to take patient to the OR for intervention tomorrow/Wednesday. No emergent intervention indicated at this time.
Patient will be admitted for pain control, IV fluids, and preoperative management. Will remain NPO in preparation for surgery. Patient accepted by hospitalist service in stable condition.
Chronic conditions affecting care:
History of kidney stones
Acute Exacerbation and/or Progression of Chronic Illness:
Obstructing left ureteral calculi
<Tata Barton PA-C - Last Filed: 11/23/24 02:23>
*Radiology
Radiology exam reviewed: preliminary read by ED provider (CT scan reviewed by ga-obstructing calculi in left proximal ureter) and radiology read reviewed
*Pulse Oximetry
SaO2: 98
Oxygen Mode of Delivery: Room air
Patient hypoxic: no
*EKG
Interpreted by ED Provider?: NA
*Water Chemist Interpretation
Rate: Water Chemist- N/A
*Critical Care Note
Total Time (30-74mins, 75-104mins- exclusive of procedures): Not Applicable
<Tata Barton PA-C - Last Filed: 11/23/24 02:23>
Patient Management
Discussion with other providers: Hospitalist and Wholesale Buyer (Case discussed with urology)
Escalation/DeEscalation of care consider admission/obs:
Admit�n.p.o., pain management, IV fluids, plan for OR with urology tomorrow or Wednesday
ED Attending Note
<Tata Barton PA-C - Last Filed: 11/23/24 02:23>
-
Portions of this chart may have been created with voice recognition software.� Occasional wrong word or��sound alike� substitutions may have occurred due to the inherent limitations of voice recognition software.
<Arcenio Fair DO - Last Filed: 11/22/24 22:13>
ED Attending Note
Patient seen and examined by attending physician: Yes
I performed the substantive portion of visit, reviewed & personally made and approve the management plan that is documented in note by myself or ROBERT.: Yes
ED Attending Note:
Seen with PA examined independently 73-year-old male prostate cancer followed Dr. Hernandez at [facility] known kidney stone never had any ureteral stones, presents with flank pain and vomiting CT noted labs noted
Discharge Plan
Departure
Patient Disposition: Admit
Date of Disposition: 11/22/24
Time of Disposition: 21:38
Presentation/result/management discussed w/ accepting MD/DO: Hospitalist
Discharge Problem:
Calculus of proximal left ureter
Interventions
Interventions:
*Risk Screen - Suicide Last Done: 11/22/24 14:09
*General Assessment Last Done: 11/22/24 14:09
*Neglect/Abuse Screening Last Done: 11/22/24 14:09
*ED- Fall Risk Assessment Last Done: 11/22/24 14:09
*ED COVID-19 Vaccine History Last Done: 11/22/24 14:09
*ED Influenza Vaccine History Last Done: 11/22/24 14:09
MG-Rgrnql-Ojwkxgkwjx Assessment Last Done: 11/22/24 18:12
[2024-11-22 18:11] VITALS: BMI 26.3
[2024-11-22] MEDS: NSS 1000 IV (18:32)
[2024-11-22] MEDS: ZOFRAN 4 MG IV ×2 (18:32→21:58)
[2024-11-22] MEDS: TORADOL 15 MG IV (18:32)
[2024-11-22 18:38] VITALS: BP 160/79
[2024-11-22 18:50] LABS: COVID-19 Antigen Negative (Negative)
[2024-11-22 19:00] VITALS: BP 148/71
[2024-11-22 21:25] LABS: Urine Character Clear (Clear)
[2024-11-22] MEDS: FLOMAX 0.4 MG PO (21:52)
[2024-11-22] MEDS: DILAUDID 0.5 MG IV (21:53)
--- NOTE | 2024-11-22 22:05 | HPS.HSE ---
Family Physician
-
Family Physician: Renetta Goodson
Chief Complaint
-
Flank pain
History of Present Illness
This is a 73-year-old male with past medical history significant for prostate cancer, BPH, obstructive sleep apnea, depression/bipolar/ADD presenting to the emergency department with nausea and vomiting.
Patient reported onset of symptoms this a.m. after arriving at work. He reported that symptoms began with diaphoresis then some vague nausea that did not improve with attempted vomiting bloody no vomit. Reported pain that was radiating across his
lower quadrants bilaterally. He denies having any pain in his back. He denies having any dysuria frequency or urgency. Patient reported that as the day progressed he had much more severe nausea and then developed volume and also vomiting. He
vomited several times until he came to the emergency department for further evaluation. He denies having any diarrhea. He denies any known sick contacts. He denies having any fevers.
In the emergency department he was afebrile, blood pressure was 160/80 with a pulse of 57 and was satting 90% on room air.
CBC shows a white count 10.5 the rest of the hemoglobin and platelets were normal. Electrolytes BUN and creatinine were normal. UA showed blood but otherwise no active processes.
CT of the abdomen pelvis showing left proximal ureter, there are 2 calculi with resultant obstruction. The more inferior calculus has craniocaudal dimension of 10 mm and the more superior calculus has craniocaudal dimension of 6 mm. There is
moderate to severe dilation of the more proximal left renal pelvis and calyces.
Medical History
Past Medical History
Past Medical History: Reports Other
Additional Past Medical History:
hyperlipidemia
bipolar disorder
depression
ADHD
BPH
overactive bladder
TANNA
Hx prostate cancer
Past Surgical History: Reports Other
Additional Past Surgical History:
right shoulder surgery rotator cuff and SLAP tear, acromioplasty Dr Hannah 10/2017
surgery right knee, ruptured 's cyst 2018
Mohs surgery for basal cell skin cancer, Dr Sands, Dr Kang 2019 for back lesion, Feb 2022 for lesion on the nose Feb 2018
prostate biopsies, prostate cancer 2021, June 2022
Social History
Tobacco: Non-smoker
Alcohol: Occasional
Drug: None
Personal:
Living: With Family
Employment: Employed
Family History
Family History: Not pertinent
Allergies / Home Medications
Allergies reflects when Allergies were last updated in [facility].
Home Medications with original date entered in [facility]
Allergy/Medication List:
Allergies
Allergy/AdvReac Type Severity Reaction Status Date / Time
No Known Allergies Allergy Verified 09/25/24 19:08
Home Medications
dextroamphetamine-amphetamine 10 mg tablet 10 mg PO PRN PRN mental fatigue 09/30/09
simvastatin 10 mg tablet 20 mg PO HS 09/30/09
alfuzosin 10 mg tablet,extended release 24 hr 10 mg PO HS 09/25/24
buspirone 15 mg tablet 15 mg HS 09/25/24
desvenlafaxine 50 mg tablet,extended release 24 hour 50 mg PO HS 09/25/24
prazosin 1 mg capsule 1 mg PO HS 09/25/24
Review of Systems
-
Constitutional: Reports No Symptoms
EENT: Reports No Symptoms
Respiratory: Reports No Symptoms
Cardiac: Reports No Symptoms
Abdomen/GI: Reports Abdominal Pain
: Reports Flank Pain
Musculoskeletal: Reports No Symptoms
Skin: Reports No Symptoms
Neurological: Reports No Symptoms
Endocrine: Reports No Symptoms
Hematologic/Lymphatic: Reports No Symptoms
Psych: Reports No Symptoms
Physical Exam
Vital Signs
Vital Signs
Temp Pulse Resp BP Pulse Ox
98.8 F 57 18 160/79 97
11/22/24 14:09 11/22/24 14:09 11/22/24 14:09 11/22/24 18:38 11/22/24 18:37
Physical Exam
General: Well Developed, Well Nourished, No Apparent Distress, Comfortable, Conversant and Obese
HEENT: NormoCephalic, Moist mucous membranes and Atraumatic
Respiratory: Clear and Non Labored Respirations
Cardiac: S1/S2 and Regular Rhythm; No Murmur, Rub or Gallop
Breast: Deferred by me
GI: Soft, Non Tender, Non Distended and Normal Bowel Sounds; No Organomegaly
Rectal: Deferred by Provider
Genito-urinary: Deferred by me
Musculoskeletal: No Clubbing, No Cyanosis and No Edema
Skin: Warm, IV/Catheter Site and Other (left posterior thigh erythema and edema (tender to touch) )
Neuro: Awake, AO x 3 and Nonfocal/grossly intact
Psych: Calm and Intact Judgment/Insight
Laboratory Results
-
11/22/24 14:17
11/22/24 14:17
Laboratory Results
Lactic Acid Cancelled 11/22/24 22:00
Total Bilirubin 0.9 mg/dl (0.2-1.3) 11/22/24 14:17
AST 21 U/L (17-59) 11/22/24 14:17
ALT 21 U/L (0-50) 11/22/24 14:17
Alkaline Phosphatase 105 U/L (38-126) 11/22/24 14:17
Lipase 62 U/L (23-300) 11/22/24 14:17
Data Reviewed
-
CT Scan: Report Reviewed by me
Lab Data: Labs Reviewed by me
Old Records: Reviewed
Impression/Plan
-
IMPRESSION:
73-year-old presenting with flank pain and found to have a left-sided nephrolithiasis complicated by hydronephrosis. No signs of acute infection. Renal function remains preserved.
PLAN:
Nephrolithiasis complicated by severe left-sided hydronephrosis.
-Admit to MedSurg
-N.p.o. after midnight
-Currently on no thinners, holding all thinners
-Hold antibiotics for now
-Hydration overnight, continue alpha blockade, unlikely to spontaneously pass
- Urology aware, plan for OR in a.m.
TANNA -intermittent home CPAP at bedtime
- prefers not to have cpap at this time.
Sleep disorder - chronic idiopathic hypersomnia.
- continue adderal
- continue buspiron
DVT PPX - SCDs for now
Code status - Full Code
[2024-11-22] MEDS: LR 1000 IV (23:54)
[2024-11-22 23:57] VITALS: BP 112/75
[2024-11-23] VITALS (16 sets, daily range): BP systolic 107–136; BP diastolic 50–75
[2024-11-23] MEDS: DILAUDID 0.5 MG IV (03:04)
[2024-11-23] MEDS: ZOFRAN 4 MG IV (03:47)
[2024-11-23 04:18] LABS: Hematocrit 35.6 % (39.0-52.0); Hemoglobin 12.3 g/dL (13.0-18.0); Mean Corp Hgb Conc. 34.6 g/dL (33.0-37.0); Mean Corpuscular Volume 83.6 fL (80.0-94.0); Platelet Count 212 10^3/uL (130-400); Red Cell Dist. Width 12.9 % (11.5-14.5)
[2024-11-23 04:41] LABS: Blood Urea Nitrogen 17 mg/dl (9-20); Calcium 8.3 mg/dl (8.4-10.2); Carbon Dioxide 25 mmol/L (22-30); Chloride 110 mmol/L (98-107); Estimated Creatinine Clearance 51 ml/min; Glucose 104 mg/dl (70-99); Magnesium 2.0 mg/dl (1.6-2.3); Potassium 4.1 mmol/L (3.5-5.1); Sodium 138 mmol/L (135-145); eGFR > 60.00
[2024-11-23] MEDS: TORADOL 10 MG IV (08:38)
--- NOTE | 2024-11-23 08:50 | W.PN.URO.CBU ---
Today's Communication / Plan
-
for op room
Assessment / Plan
-
for stone manipulation ansd stenting did consent [pt aware he will have a stent and will need definitive stone treatment once recovers from this acute event
Diagnosis
-
Date of Service: November 23, 2024
-
Patient Diagnosis:left impassable 10mm prox ureteral stone and 3 other stones
Post Op Day:
Subjective
-
nausea no fever nor chills
Objective
-
Vital Signs
Temp Pulse Resp BP Pulse Ox
98.8 F 53 13 122/66 97
11/22/24 14:09 11/23/24 01:45 11/23/24 01:45 11/23/24 00:00 11/23/24 01:45
Laboratory Results
11/23/24 03:50
11/23/24 03:50
Review of Systems
-
Abdomen/GI: Nausea
: Flank Pain
Physical Exam
-
General - well developed, well nourished, no acute distress non toxic
Chest - clear bilaterally
Abdomen - soft, non-tender, positive bowel sounds, CVAT, no incisional pain or distention
Genitalia - normal
Rectal - normal
Skin - warm & dry with no rash
Neuro - AOx3, no motor deficits
Extremities - no clubbing, no cyanosis, no edema
Incision - clean, dry
Dressing - clean, dry, intact
Counseling
-
npo
Care Review
Data Reviewed
Discussed with: Nursing
CT Scan: Image Pers Reviewed
--- NOTE | 2024-11-23 11:10 | W.PN.HOSP.TC ---
Today's Communication/Plan
-
see outlined plan below
Assessment / Plan
Assessment / Plan
Assessment:
Flank with with ureterolithiasis and associated Left sided severe hydronephrosis
Obstructive uropathy
- CT: In the left proximal ureter, there are 2 calculi with resultant obstruction. The more inferior calculus has craniocaudal dimension of 10 mm and the more superior calculus has craniocaudal dimension of 6 mm. There is moderate to severe dilation
of the more proximal left renal pelvis and calyces. There is also a 5 mm nephrolith in the lateral central left mid kidney and a 4 mm nephrolith in the central lower pole the left kidney. There may be central parapelvic renal cysts in addition to
left calyceal dilation.
- Urology consulted; NPO for stenting today. as an outpatient in ~ 2 weeks, will have definitive stone procedure(s)
- Ancef pre-op; Cefdinir x 14 days at discharge
- continue Flomax, pain control (pyridium for stent pains)
- IVF
- if no complication with procedure later; can dc home with oral abx/meds and OP Urology f/u
TANNA
- on intermittent CPAP HS
Sleep disorder - chronic idiopathic hypersomnia.
- continue Adderall
- continue buspirone
HLD - statin
DVT ppx: SCDs
Code: Full
Anticipated Discharge: Within 24 hours
Subjective/Interval History
-
Date of Service: November 23, 2024
pain controlled at present
denies hematuria, no fever/chills
for stenting procedure later today with Urology
Objective Data
-
Labs:
Laboratory Results
11/23/24
03:50
WBC 10.3
Hgb 12.3 L
Hct 35.6 L
Plt Count 212
Sodium 138
Potassium 4.1
Chloride 110 H
Carbon Dioxide 25
BUN 17
Creatinine 1.1
Glucose 104 H
Calcium 8.3 L
Vital Signs:
Vital Signs
Temp Pulse Resp BP Pulse Ox
98.2 F 57 18 122/69 98
11/23/24 09:12 11/23/24 09:12 11/23/24 09:12 11/23/24 09:12 11/23/24 09:12
Physical Exam
-
General: No Apparent Distress
HEENT: Normocephalic and Atraumatic
Respiratory: Negative Wheezes
Cardiac: Regular Rhythm and S1/S2
GI: Soft and Nontender
Musculoskeletal: No Edema
Neuro: AO x 3
Psych: Calm
Data Reviewed
-
Total Time Spent with Patient (in minutes): 42
CT Scan: Report Reviewed by me
Labs: Labs Reviewed by me
--- NOTE | 2024-11-23 12:27 | EDCM ---
CM reviewed chart and met with pt bedside in ED. Lives with his in 2 story home, [address]. first floor half bath, full flight to second floor
Independent in ADLs, personal care and ambulation at baseline. No assistive devices, does have CPAP. still drives.
Confirms prescription coverage.
No hx VN or SNF.
PCP: Renetta Goodson
Pharmacy: [facility]
Anticipate discharge home, no needs. CM will continue to follow for any discharge planning needs.
--- NOTE | 2024-11-23 12:46 | PTCARENOTE ---
report given to OR and pt sent with all belongings including glasses and phone.
--- NOTE | 2024-11-23 13:28 | W.SUR.PREOP ---
Pre-Operative Surgical Note
-
I have examined this patient prior to the performance of the scheduled procedure.
The patient's condition is unchanged from the time of the current History and
Physical and the patient is able to undergo the scheduled procedure.
--- NOTE | 2024-11-23 14:13 | W.IMMPOSTOP ---
Surgical Immed Post Op Note
-
Primary Surgeon:
izabela
Assisting Surgeon:
none
Pre-op Diagnosis:
obstructing left ureteral stones/hydro
Post-op Diagnosis:
same
Procedure Performed:
cysto/stone manipulation/stent
Anesthesia Type:
gen
Specimen / Cultures:
none
Estimated Blood Loss:
1cc
Complications:
none
Operative Findings:
BPH
some j hooking of left ureter
stone pushed back- stent placed- some cloudy urine returned after stent placement
reviewed with med team
will admit overnight for observation
if stable- home tomorrow and outpt f/u to discuss definitive stone treatment
[2024-11-23] MEDS: ULTRAM 50 MG PO (18:53)
[2024-11-23] MEDS: ROCEPHIN 1000 MG IV (19:51)
[2024-11-23] MEDS: STERILE WATER FOR INJECTION 10 ML IV (19:51)
[2024-11-23] MEDS: BUSPAR 15 MG PO (21:45)
[2024-11-23] MEDS: MINIPRESS 1 MG PO (21:45)
[2024-11-23] MEDS: FLOMAX 0.4 MG PO (21:59)
[2024-11-24 03:38] VITALS: BP 124/67
[2024-11-24 07:03] VITALS: BP 128/70
[2024-11-24 07:42] LABS: Hematocrit 37.1 % (39.0-52.0); Hemoglobin 12.1 g/dL (13.0-18.0); Mean Corp Hgb Conc. 32.6 g/dL (33.0-37.0); Mean Corpuscular Volume 86.3 fL (80.0-94.0); Platelet Count 215 10^3/uL (130-400); Red Cell Dist. Width 12.6 % (11.5-14.5)
[2024-11-24 08:03] LABS: Blood Urea Nitrogen 17 mg/dl (9-20); Calcium 8.4 mg/dl (8.4-10.2); Carbon Dioxide 27 mmol/L (22-30); Chloride 108 mmol/L (98-107); Estimated Creatinine Clearance 56 ml/min; Glucose 88 mg/dl (70-99); Potassium 4.2 mmol/L (3.5-5.1); Sodium 139 mmol/L (135-145); eGFR > 60.00
--- NOTE | 2024-11-24 08:06 | W.PN.URO.CBU ---
Today's Communication / Plan
-
discharge
Assessment / Plan
-
s/p left ureteral stent for left sided stones
no evid of infx
reviewed discharge instructions and plan with pt
home today on empiric cefdinir
outpt f/u
Diagnosis
-
Date of Service: November 24, 2024
-
Patient Diagnosis:
left sided nephrolithiasis
Post Op Day:
left ureteral stent 11/23
Subjective
-
pt feels fine
minimal voiding sx's
no fevers/wbc normal
Objective
-
Vital Signs
Temp Pulse Resp BP Pulse Ox
98.7 F 56 18 128/70 94
11/24/24 07:03 11/24/24 07:03 11/24/24 07:03 11/24/24 07:03 11/24/24 07:03
Intake and Output
11/23/24 11/24/24 11/25/24
06:59 06:59 06:59
Intake Total 160 / 160
Balance 160 / 160
Intake:
Oral fluids 60 / 60
IV fluids (Total) 100 / 100
Normosol 100 / 100
Other:
Number of approximated LARGE 1
amounts of urine
Laboratory Results
11/24/24 07:01
11/24/24 07:01
Physical Exam
-
General - no acute distress
Abdomen - soft, non-tender
--- NOTE | 2024-11-24 09:00 | CM ---
CM following re: discharge planning.
Reviewed pt's chart, met with pt.
Discharge order noted. Pt is aware, expressed his agreement and stated his spouse will transport home. IMM reviewed, placed on chart, pt has a copy.
no after care VN needs identified.
D/C plan: home no needs. Spouse to transport.
--- NOTE | 2024-11-24 09:47 | W.PN.HOSP.TC ---
Today's Communication/Plan
-
dc to home
Assessment / Plan
Assessment / Plan
Assessment:
Flank with with ureterolithiasis and associated Left sided severe hydronephrosis
Obstructive uropathy
- CT: In the left proximal ureter, there are 2 calculi with resultant obstruction. The more inferior calculus has craniocaudal dimension of 10 mm and the more superior calculus has craniocaudal dimension of 6 mm. There is moderate to severe dilation
of the more proximal left renal pelvis and calyces. There is also a 5 mm nephrolith in the lateral central left mid kidney and a 4 mm nephrolith in the central lower pole the left kidney. There may be central parapelvic renal cysts in addition to
left calyceal dilation.
- Urology consulted; s/p L sided ureteral stent 11/23
- DC on Cefdinir x 5 days
- dc on tramadol/Pyridium
- OP Urology f/u for definitive stone procedure
TANNA
- on intermittent CPAP HS
Sleep disorder - chronic idiopathic hypersomnia.
- continue Adderall
- continue buspirone
HLD - statin
DVT ppx: SCDs
Code: Full
More than 30 minutes spent in discharge including
Final examination of the patient
Summarizing hospital stay
Instructions for continuing care to all relevant caregivers
Preparation of discharge records, prescriptions, and referral forms
Total time spent (in minutes): 41
Anticipated Discharge: Today
Subjective/Interval History
-
Date of Service: November 24, 2024
s/p stenting
feels well , no complaints
Objective Data
-
Labs:
Laboratory Results
11/24/24
07:01
WBC 9.3
Hgb 12.1 L
Hct 37.1 L
Plt Count 215
Sodium 139
Potassium 4.2
Chloride 108 H
Carbon Dioxide 27
BUN 17
Creatinine 1.0
Glucose 88
Calcium 8.4
Vital Signs:
Vital Signs
Temp Pulse Resp BP Pulse Ox
98.7 F 56 18 128/70 94
11/24/24 07:03 11/24/24 07:03 11/24/24 07:03 11/24/24 07:03 11/24/24 07:03
I&O
11/23/24 11/24/24 11/25/24
06:59 06:59 06:59
Intake Total 160 / 160
Balance 160 / 160
Physical Exam
-
General: No Apparent Distress
HEENT: Normocephalic and Atraumatic
Cardiac: Regular Rhythm and S1/S2
GI: Soft
Genito-urinary: No Costovertebral Tender
Neuro: AO x 3
Data Reviewed
-
Total Time Spent with Patient (in minutes): 41
Labs: Labs Reviewed by me
--- NOTE | 2024-11-24 09:55 | W.DS.TRANS ---
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
-
Discharge Instructions:
Discharge Diagnosis/Procedures ureteral stones with obstruction s/p stenting 10
Diet Regular
Activity As tolerated
Bathing Restrictions None
Instructions:
Stand-Alone Forms:
Changes to Home Medications: No
Discharge Medications:
DC Medications w/original date entered in [facility]
alfuzosin 10 mg tablet,extended release 24 hr 10 mg PO HS BPH 09/25/24
buspirone 15 mg tablet 15 mg PO HS Mental Health/Anxiety 09/25/24
prazosin 1 mg capsule 1 mg PO HS Blood Pressure 09/25/24
atorvastatin 20 mg tablet (Lipitor) 20 mg PO HS 11/23/24
desvenlafaxine succinate 50 mg tablet,extended release 24 hr 50 mg PO HS 11/23/24
dextroamphetamine-amphetamine 5 mg tablet (Adderall) 5 mg PO DAILYPRN PRN adhd 11/23/24
tolterodine 4 mg capsule,extended release 24 hr 4 mg PO HS 11/23/24
cefdinir 300 mg capsule 300 mg PO BID #10 caps 11/24/24
phenazopyridine 100 mg tablet (Pyridium) 100 mg PO BID #30 tabs 11/24/24
tramadol 50 mg tablet 50 mg PO Q8H PRN Pain #20 tabs 11/24/24
Home Medication Changes
Pending Results: No
Total time spent discharging patient (in min): 42
== END 2024-11-24 10:59 | disposition home or self-care (01) | DRG 661 ==
LOC: 2 NORTH 22:53
PROVIDERS: Emergency Medicine; Physician Assistant; Specialist; ADMITTING PHYSICIAN Internal Medicine; ATTENDING PHYSICIAN Internal Medicine; EMERGENCY PHYSICIAN Emergency Medicine; FAMILY PHYSICIAN Family Medicine
PROC: 0T778DZ Dilation of Left Ureter with Intraluminal Device, Via Natural or Artificial Opening Endoscopic (ICD-10-PCS; 2024-11-23)
DX: N13.2 Hydronephrosis with renal and ureteral calculous obstruction (principal); R11.10 Vomiting, unspecified; G47.33 Obstructive sleep apnea (adult) (pediatric); F31.9 Bipolar disorder, unspecified; N40.0 Benign prostatic hyperplasia without lower urinary tract symptoms; E78.5 Hyperlipidemia, unspecified; N32.89 Other specified disorders of bladder; F90.9 Attention-deficit hyperactivity disorder, unspecified type; N32.81 Overactive bladder; G47.11 Idiopathic hypersomnia with long sleep time; Z85.46 Personal history of malignant neoplasm of prostate; Z85.828 Personal history of other malignant neoplasm of skin; Z11.52 Encounter for screening for COVID-19
CPT/HCPCS: 74018; 74177; 76000; 80048; 80053; 81003; 81015; 83605; 83690; 83735; 85025; 85027; 87086; 87502; 87811; 93005; C1758; C2617; Q9967

== ENCOUNTER 2024-12-01 06:18 | Day surgery (SDC) | payer OTHER, SELFPAY ==
[2024-12-01] VITALS (8 sets, daily range): BP systolic 117–155; BP diastolic 60–100; BMI 26.8
[2024-12-01] MEDS: NORMOSOL-R/PLASMALYTE-A 1000 IV (09:17)
[2024-12-01] MEDS: FLOMAX 0.4 MG PO (14:00)
== END 2024-12-01 14:55 | disposition home or self-care (01) ==
LOC: SDS 06:18
PROVIDERS: ATTENDING PHYSICIAN Specialist
DX: N20.2 Calculus of kidney with calculus of ureter (principal)
CPT/HCPCS: 52356; 74018; 76000; 82365; C1769; C1894; C2617